=== PATIENT | female | born 1935 | race Caucasian/White ===

== ENCOUNTER → 2018-09-09 | Outpatient (CLI) | payer MEDICARE, OTHER ==
--- NOTE | 2018-09-09 15:55 | XR ---
EXAMINATION TYPE: XR chest 2V DATE OF EXAM: 09/09/2018 COMPARISON: Prior chest x-ray 08/24/2014 HISTORY: Screening for tuberculosis TECHNIQUE: Frontal and lateral views of the chest are obtained. FINDINGS: Patient is rotated. Aorta is dense as on prior exam. Fibrotic changes are again noted at th e lung bases. There are coronary artery calcifications present. There is no focal air space opacity, pleural effusion, or pneumothorax seen. The cardiac silhouette size is within normal limits. The o sseous structures are intact. IMPRESSION: Interstitial lung disease, stable exam.
== END | disposition home or self-care (01) ==
LOC: RADXRMAIN 14:53
PROVIDERS: ATTEND Family Medicine
DX: Z11.1 Encounter for screening for respiratory tuberculosis (principal); J84.9 Interstitial pulmonary disease, unspecified; Z02.2 Encounter for examination for admission to residential institution
CPT/HCPCS: 71046

== ENCOUNTER 2019-02-08 18:57 | Inpatient (IN) | payer MEDICARE, OTHER ==
[2019-02-08] MEDS ORDERED: MORPHINE SULFATE 4 MG/ML SYRINGE IVP STA (19:13)
--- NOTE | 2019-02-08 20:01 | CT ---
EXAMINATION TYPE: CT brain bertin macdonald DATE OF EXAM: 02/08/2019 COMPARISON: CT brain 09/07/2014 HISTORY: Fall. CT DLP: 1243.6 mGycm Automated exposure control for dose reduction was used. There is diffuse cerebral cortical atrophy. There is no mass effect nor midline shift. There is no si gn of intracranial hemorrhage. There is enlargement of the ventricles. Calvarium is intact. There is some straightening of the cervical spine. The disc space narrowing at C3-4 and C5-6. Posteri or elements are intact. Facet joints are intact. Skull base is intact. IMPRESSION: Cerebral atrophy. No acute intracranial abnormality. No change. Spondylotic changes in the cervical spine. No fracture seen.
--- NOTE | 2019-02-08 20:04 | XR ---
EXAMINATION TYPE: XR chest 1V DATE OF EXAM: 02/08/2019 COMPARISON: 09/09/2018 HISTORY: Chest pain TECHNIQUE: Single view FINDINGS: There is general coarsening interstitial density in the lungs. There is no heart failure. H eart size is normal. There is no pleural effusion or pneumothorax. There is moderate arthritic change in the right shoulder joint. IMPRESSION: Pulmonary interstitial fibrosis. No acute lung disease. No change.
--- NOTE | 2019-02-08 20:06 | XR ---
EXAMINATION TYPE: XR Hip LT and AP Pelvis DATE OF EXAM: 02/08/2019 COMPARISON: NONE HISTORY: Hip pain after fall TECHNIQUE: 3 views FINDINGS: There is an acute subcapital fracture left femur. There is no dislocation. Pelvic ring is i ntact. Sacroiliac joints are intact. IMPRESSION: Acute subcapital fracture left femur.
--- NOTE | 2019-02-08 20:07 | XR ---
EXAMINATION TYPE: XR femur LT DATE OF EXAM: 02/08/2019 COMPARISON: NONE HISTORY: Fall. Pain. TECHNIQUE: 6 views FINDINGS: There is a left knee prosthesis. Components appear in anatomic position. There is osteopeni a. There is vascular calcification. There is an acute slightly impacted subcapital fracture left femur. There is no dislocation. IMPRESSION: Acute subcapital fracture left femur.
[2019-02-08 20:51] LABS: Basophils % (A) 0 %; Eosinophils % (A) 0 %; HCT 39.4 % (34.0-46.0); HGB 12.9 gm/dL (11.4-16.0); Lymphocytes # (A) 0.8 k/uL (1.0-4.8); Lymphocytes % (A) 5 %; MCH 32.3 pg (25.0-35.0); MCHC 32.7 g/dL (31.0-37.0); MCV 98.8 fL (80.0-100.0); Monocytes # (A) 0.4 k/uL (0-1.0); Monocytes % (A) 3 %; Neutrophils # (A) 13.8 k/uL (1.3-7.7); Neutrophils % (A) 92 %; Platelet Count 179 k/uL (150-450); RBC 3.99 m/uL (3.80-5.40)
[2019-02-08 21:01] LABS: ALT 11 U/L (4-34); AST 23 U/L (14-36); African American GFR (CKD) >90 (>60 ml/min/1.73 sqM); Albumin 4.3 g/dL (3.5-5.0); Alkaline Phosphatase 79 U/L (38-126); Anion Gap 8 mmol/L; Blood Urea Nitrogen 18 mg/dL (7-17); Calcium 9.7 mg/dL (8.4-10.2); Carbon Dioxide 26 mmol/L (22-30); Chloride 107 mmol/L (98-107); Glucose 112 mg/dL (74-99); Non-African American GFR(CKD) 78 (>60 ml/min/1.73 sqM); Potassium 3.9 mmol/L (3.5-5.1); Sodium 141 mmol/L (137-145); Total Bilirubin 1.1 mg/dL (0.2-1.3); Total Protein 7.8 g/dL (6.3-8.2)
[2019-02-08] MEDS ORDERED: NALOXONE 0.4 MG/ML 1 ML VIAL IV PRN (21:37)
[2019-02-08] MEDS ORDERED: ONDANSETRON 4 MG/2 ML VIAL IVP PRN (21:37)
--- NOTE | 2019-02-08 21:37 | ED ---
General Adult HPI - General Source: patient, RN notes reviewed Mode of arrival: EMS Limitations: altered mental status <Paul Arias P - Last Filed: 02/08/19 21:31> <Kelsey Bell P - Last Filed: 02/09/19 05:55> - General Chief complaint: Fall Stated complaint: FALL Time Seen by Provider: 02/08/19 19:06 - History of Present Illness Initial comments: 83-year-old female with a past medical history CAD, dementia presents to the emergency department chief complaint of left hip pain. Patient presents from [facility]. Patient had a trip and fall earlier today. This was witnessed. Patient fell and had a left hip and was unable to ambulate on the left hip so an ambulance was called. Patient was brought in a c-collar with possibility of hitting her head. Patient does not take blood thinners.Patient has no other complaints at this time including shortness of breath, chest pain, abdominal pain, nausea or vomiting, headache, or visual changes. (Paul Arias) - Related Data Home Medications Medication Instructions Recorded Confirmed Adp 50mg 1 tab PO TID 02/08/19 02/08/19 Cholecalciferol [Vitamin D3 (25 5,000 unit PO DAILY 02/08/19 02/08/19 Mcg = 1000 Iu)] Cyanocobalamin (Vitamin B-12) 5,000 mcg PO DAILY 02/08/19 02/08/19 [Vitamin B-12] Digestzyme 1 cap PO TID-W/MEALS 02/08/19 02/08/19 Zohra C Cranberry 2000mg 1 tab PO BID 02/08/19 02/08/19 Kera Probiotic 1 cap PO DAILY 02/08/19 02/08/19 Homocystrol 17mg 1 cap PO BID 02/08/19 02/08/19 Lithate 5mg 1 tab PO BID 02/08/19 02/08/19 [place] Orotate 10mg 1 cap PO MOWEFR 02/08/19 02/08/19 Mct Oil 5 ml PO DAILY 02/08/19 02/08/19 Phyto Multivitamin 1 tab PO BID 02/08/19 02/08/19 Polyethylene Glycol 3350 [Miralax] 17 gm PO DAILY PRN 02/08/19 02/08/19 Thyroid Support 1 tab PO DAILY 02/08/19 02/08/19 Turmeric (Unknown Dose) 2 cap PO BID 02/08/19 02/08/19 Allergies Allergy/AdvReac Type Severity Reaction Status Date / Time No Known Allergies Allergy Verified 02/08/19 22:27 Review of Systems ROS Other: All systems not noted in ROS Statement are negative. <Paul Arias P - Last Filed: 02/08/19 21:31> ROS Other: All systems not noted in ROS Statement are negative. <Kelsey Bell P - Last Filed: 02/09/19 05:55> ROS Statement: Those systems with pertinent positive or pertinent negative responses have been documented in the HPI. Past Medical History Past Medical History: Coronary Artery Disease (CAD), Dementia, Deep Vein Thrombosis (DVT), Osteoarthritis (OA) Additional Past Medical History / Comment(s): used to take cholesterol and thyroid meds but not for lont time, uti, arrythmia History of Any Multi-Drug Resistant Organisms: None Reported Past Surgical History: Adenoidectomy, Appendectomy, Cholecystectomy, Heart Catheterization, Heart Catheterization With Stent, Hysterectomy, Tonsillectomy Additional Past Surgical History / Comment(s): marry knee replacements, marry breast bx neg Past Anesthesia/Blood Transfusion Reactions: Previous Problems w/ Anesthesia Additional Past Anesthesia/Blood Transfusion Reaction / Comment(s): fater knee sx seemed to have loss some memory Date of Last Stent Placement:: unk Past Psychological History: No Psychological Hx Reported Smoking Status: Never smoker Past Alcohol Use History: None Reported Past Drug Use History: None Reported - Past Family History Father Family Medical History: Coronary Artery Disease (CAD) Additional Family Medical History / Comment(s): at age 72 3 days after cabg Mother Family Medical History: Cancer Additional Family Medical History / Comment(s): at age 36 <Paul Arias P - Last Filed: 02/08/19 21:31> General Exam Limitations: altered mental status General appearance: alert, in no apparent distress Head exam: Present: atraumatic, normocephalic, normal inspection Eye exam: Present: normal appearance, PERRL, EOMI. Absent: scleral icterus, conjunctival injection ENT exam: Present: normal exam, mucous membranes moist Neck exam: Present: normal inspection. Absent: tenderness, meningismus, lymphadenopathy Respiratory exam: Present: normal lung sounds bilaterally. Absent: respiratory distress, wheezes, rales, rhonchi, stridor Cardiovascular Exam: Present: regular rate, normal rhythm, normal heart sounds. Absent: systolic murmur, diastolic murmur, rubs, gallop, clicks Extremities exam: Present: normal capillary refill (Capillary refill less than 2 seconds, DP pulse is strong on Doppler). Absent: normal inspection, full ROM (Patient has pain with passive range of motion of the left hip), tenderness, pedal edema, joint swelling, calf tenderness <Paul Arias - Last Filed: 02/08/19 21:31> Course Vital Signs 02/08/19 02/08/19 02/08/19 19:03 20:59 22:21 Temperature 97.9 F Pulse Rate 63 81 89 Respiratory 18 18 18 Rate Blood Pressure 158/64 173/80 164/97 O2 Sat by Pulse 98 93 L 93 L Oximetry 02/09/19 02/09/19 00:00 04:48 Temperature 97.8 F 98.4 F Pulse Rate 59 L 82 Respiratory 18 18 Rate Blood Pressure 158/79 127/77 O2 Sat by Pulse 93 L 90 L Oximetry EKG Findings - EKG Comments: EKG Findings:: Sinus rhythm, ventricular rate 86, CT interval 256, QTc 469 <Paul Arias - Last Filed: 02/08/19 21:31> Medical Decision Making - Lab Data Result diagrams: 02/08/19 20:35 02/08/19 20:35 <Paul Arias P - Last Filed: 02/08/19 21:31> - Lab Data Result diagrams: 02/08/19 20:35 02/08/19 20:35 <Kelsey Bell P - Last Filed: 02/09/19 05:55> - Medical Decision Making Vitals are stable. CT brain and C-spine showed no acute abnormality. Patient refused to keep on c-collar regardless. X-ray of the left hip shows an acute subcapital left femur fracture. Therefore lab work was obtained. CBC shows mild leukocytosis. CMP unremarkable. Chest x-ray shows pulmonary interstitial fibrosis without acute lung disease. This case was discussed with Dr. Bell. Patient will be admitted to [facility]. OA on consult (Paul Arias) I personally saw and Evaluated the patient, labs and imaging were reviewed, I agree with plan for admission for evaluation by orthopedic surgery (Kelsey Bell) - Lab Data Lab Results 02/08/19 02/08/19 Range/Units 20:35 20:35 WBC 15.0 H (3.8-10.6) k/uL RBC 3.99 (3.80-5.40) m/uL Hgb 12.9 (11.4-16.0) gm/dL Hct 39.4 (34.0-46.0) % MCV 98.8 (80.0-100.0) fL MCH 32.3 (25.0-35.0) pg MCHC 32.7 (31.0-37.0) g/dL RDW 13.0 (11.5-15.5) % Plt Count 179 (150-450) k/uL Neutrophils % 92 % Lymphocytes % 5 % Monocytes % 3 % Eosinophils % 0 % Basophils % 0 % Neutrophils # 13.8 H (1.3-7.7) k/uL Lymphocytes # 0.8 L (1.0-4.8) k/uL Monocytes # 0.4 (0-1.0) k/uL Eosinophils # 0.0 (0-0.7) k/uL Basophils # 0.0 (0-0.2) k/uL Sodium 141 (137-145) mmol/L Potassium 3.9 (3.5-5.1) mmol/L Chloride 107 (98-107) mmol/L Carbon Dioxide 26 (22-30) mmol/L Anion Gap 8 mmol/L BUN 18 H (7-17) mg/dL Creatinine 0.71 (0.52-1.04) mg/dL Est GFR (CKD-EPI)AfAm >90 (>60 ml/min/1.73 sqM) Est GFR (CKD-EPI)NonAf 78 (>60 ml/min/1.73 sqM) Glucose 112 H (74-99) mg/dL Calcium 9.7 (8.4-10.2) mg/dL Total Bilirubin 1.1 (0.2-1.3) mg/dL AST 23 (14-36) U/L ALT 11 (4-34) U/L Alkaline Phosphatase 79 (38-126) U/L Total Protein 7.8 (6.3-8.2) g/dL Albumin 4.3 (3.5-5.0) g/dL Disposition Is patient prescribed a controlled substance at d/c from ED?: No Time of Disposition: 21:37 <Paul Arias P - Last Filed: 02/08/19 21:31> <Kelsey Bell P - Last Filed: 02/09/19 05:55> Clinical Impression: Hip fracture Disposition: ADMITTED IP TO THIS HOSP Condition: Good
[2019-02-09] MEDS: SODIUM CHLORIDE 0.9% 1,000 ML IV SCH ×2 (04:36→12:28)
[2019-02-09] MEDS: HYDROmorphone 0.5 MG/0.5 ML SYRINGE IVP PRN ×3 (04:52→20:45)
[2019-02-09] MEDS ORDERED: POLYETHYLENE GLYCOL 3350 17 GM POWD.PACK PO PRN (08:32)
[2019-02-09] MEDS ORDERED: THYROID SUPPORT PO SCH (09:00)
--- NOTE | 2019-02-09 09:41 | P.HPIM ---
History of Present Illness This is a pleasant 83 years old female with past medical history of dementia, coronary artery disease with stent placement, deep venous thrombosis, osteoarthritis. Patient lying in bed not in distress. Patient is poor historian and could not provide information. She does not know where she is at, and she does not know why should not hospital however she denies chest pain, she denies pain in her hip area. As per DrKelechi at bedside and she can recognize the daughter, she came last night because she fell.Patient presents from adult foster care after she fell and presents with left hip pain and inability to ambulate with possible head trauma. She is not on Coumadin as per documents. Horta catheter was placed in the emergency room Vitals stable. Patient has mild leukocytosis of 15 K. BMP is unremarkable. Liver enzymes not elevated. Chest x-ray: No acute process. EKG showing 86 bpm with sinus rhythm and no significant ST-T changes. Pelvic x-ray showing acute subcapital left femoral fracture Review of Systems CONSTITUTIONAL: No fever, no malaise, no fatigue. HEENT: No recent visual problems or hearing problems. Denied any sore throat. CARDIOVASCULAR: No orthopnea, PND, no palpitations, no syncope. PULMONARY: No shortness of breath, no cough, no hemoptysis. GASTROINTESTINAL: No diarrhea, no nausea, no vomiting, no abdominal pain. Normoactive bowel sounds. NEUROLOGICAL: No headaches, no weakness, no numbness. HEMATOLOGICAL: Denies any bleeding or petechiae. GENITOURINARY: Denies any burning micturition, frequency, or urgency. MUSCULOSKELETAL/RHEUMATOLOGICAL: Denies any joint pain, swelling, or any muscle pain. ENDOCRINE: Denies any polyuria or polydipsia. Past Medical History Past Medical History: Coronary Artery Disease (CAD), Dementia, Deep Vein Thrombosis (DVT), Osteoarthritis (OA) Additional Past Medical History / Comment(s): used to take cholesterol and thyroid meds but not for lont time, uti, arrythmia History of Any Multi-Drug Resistant Organisms: None Reported Past Surgical History: Adenoidectomy, Appendectomy, Cholecystectomy, Heart Catheterization, Heart Catheterization With Stent, Hysterectomy, Tonsillectomy Additional Past Surgical History / Comment(s): marry knee replacements, marry breast bx neg Past Anesthesia/Blood Transfusion Reactions: Previous Problems w/ Anesthesia Additional Past Anesthesia/Blood Transfusion Reaction / Comment(s): fater knee sx seemed to have loss some memory Date of Last Stent Placement:: unk Past Psychological History: No Psychological Hx Reported Smoking Status: Never smoker Past Alcohol Use History: None Reported Past Drug Use History: None Reported - Past Family History Father Family Medical History: Coronary Artery Disease (CAD) Additional Family Medical History / Comment(s): at age 72 3 days after cabg Mother Family Medical History: Cancer Additional Family Medical History / Comment(s): at age 36 Medications and Allergies Home Medications Medication Instructions Recorded Confirmed Type Adp 50mg 1 tab PO TID 02/08/19 02/08/19 History Cholecalciferol [Vitamin D3 (25 5,000 unit PO DAILY 02/08/19 02/08/19 History Mcg = 1000 Iu)] Cyanocobalamin (Vitamin B-12) 5,000 mcg PO DAILY 02/08/19 02/08/19 History [Vitamin B-12] Digestzyme 1 cap PO TID-W/MEALS 02/08/19 02/08/19 History Zohra C Cranberry 2000mg 1 tab PO BID 02/08/19 02/08/19 History Kera Probiotic 1 cap PO DAILY 02/08/19 02/08/19 History Homocystrol 17mg 1 cap PO BID 02/08/19 02/08/19 History Lithate 5mg 1 tab PO BID 02/08/19 02/08/19 History [place] Orotate 10mg 1 cap PO MOWEFR 02/08/19 02/08/19 History Mct Oil 5 ml PO DAILY 02/08/19 02/08/19 History Phyto Multivitamin 1 tab PO BID 02/08/19 02/08/19 History Polyethylene Glycol 3350 [Miralax] 17 gm PO DAILY PRN 02/08/19 02/08/19 History Thyroid Support 1 tab PO DAILY 02/08/19 02/08/19 History Turmeric (Unknown Dose) 2 cap PO BID 02/08/19 02/08/19 History Allergies Allergy/AdvReac Type Severity Reaction Status Date / Time No Known Allergies Allergy Verified 02/08/19 22:27 Physical Exam Vitals: Vital Signs Temp Pulse Resp BP Pulse Ox 02/09/19 04:48 98.4 F 82 18 127/77 90 L 02/09/19 00:00 97.8 F 59 L 18 158/79 93 L 02/08/19 22:21 89 18 164/97 93 L 02/08/19 20:59 81 18 173/80 93 L 02/08/19 19:03 97.9 F 63 18 158/64 98 Intake and Output 02/08/19 02/09/19 02/09/19 22:59 06:59 14:59 Output Total 400 Balance -400 Output: Urine 400 Other: Weight 68.039 kg GENERAL: The patient is alert and oriented x3, not in any acute distress. Well developed, well nourished. HEENT: Pupils are round and equally reacting to light. EOMI. No scleral icterus. No conjunctival pallor. Normocephalic, atraumatic. No pharyngeal erythema. No thyromegaly. CARDIOVASCULAR: S1 and S2 present. No murmurs, rubs, or gallops. PULMONARY: Chest is clear to auscultation, no wheezing or crackles. ABDOMEN: Soft, nontender, nondistended, normoactive bowel sounds. No palpable organomegaly. MUSCULOSKELETAL: No joint swelling or deformity. EXTREMITIES: No cyanosis, clubbing, or pedal edema. NEUROLOGICAL: Gross neurological examination did not reveal any focal deficits. SKIN: No rashes. No petechiae Results CBC & Chem 7: 02/08/19 20:35 02/08/19 20:35 Labs: Abnormal Lab Results - Last 24 Hours (Table) 02/08/19 02/08/19 Range/Units 20:35 20:35 WBC 15.0 H (3.8-10.6) k/uL Neutrophils # 13.8 H (1.3-7.7) k/uL Lymphocytes # 0.8 L (1.0-4.8) k/uL BUN 18 H (7-17) mg/dL Glucose 112 H (74-99) mg/dL Assessment and Plan Assessment: Mechanical fall Left hip pain with acute subcapital left femoral fracture Head trauma Dementia Coronary artery disease with stent placement History of deep venous thrombosis not on anticoagulation Osteoarthritis Plan: This is a pleasant 83 years old female who presents with fall and left hip fracture. Continue with gentle hydration, pain management. Consult orthopedic. Continue with the neuro checks. Check urine analysis. Labs and medication were reviewed.. Continue same treatment. Continue with symptomatic treatment. Resume home medication. Monitor lytes and vitals. DVT and GI prophylaxis. Further recommendations of the clinical course of the patient DVT prophylaxis: Subcutaneous heparin GI Prophylaxis: Pepcid Prognosis is guarded
[2019-02-09] MEDS: HEPARIN SODIUM,PORCINE 5,000 UNIT/ML 1 ML VIAL SQ SCH ×2 (10:02→22:38)
[2019-02-09] MEDS: CHOLECALCIFEROL 1,000 UNIT TAB PO SCH (10:02)
[2019-02-09 10:47] LABS: Appearance,Urine Cloudy (Clear); Bacteria,Urine Rare /hpf; Bilirubin,Urine Negative (Negative); Blood,Urine Trace (Negative); Color,Urine Yellow; Glucose,Urine (UA) Negative (Negative); Ketones,Urine 1+ (Negative); Leukocyte Esterase,Urine Small (Negative); Mucus,Urine Rare /hpf; Nitrite,Urine Negative (Negative); Protein,Urine Trace (Negative); RBC,Urine 2 /hpf (0-5); Specific Gravity,Urine 1.022 (1.001-1.035); Squamous Epithelial Cell,Urine <1 /hpf (0-4); Urobilinogen,Urine >12.0 mg/dL (<2.0); WBC,Urine 8 /hpf (0-5)
[2019-02-09] MEDS: CYANOCOBALAMIN 500 MCG TAB PO SCH (12:27)
[2019-02-09] MEDS: METOPROLOL TARTRATE 12.5 MG TAB PO SCH ×2 (12:27→22:37)
[2019-02-09] MEDS: LISINOPRIL 5 MG TAB PO SCH (12:28)
[2019-02-09] MEDS: FAMOTIDINE 20 MG/2 ML VIAL IV SCH ×2 (12:28→22:38)
[2019-02-09] MEDS ORDERED: LORazepam 2 MG/ML INJ IV ONE (22:30)
[2019-02-09] MEDS: ATORVASTATIN 20 MG TAB PO SCH (22:38)
[2019-02-10] MEDS: SODIUM CHLORIDE 0.9% 1,000 ML IV SCH (01:23)
[2019-02-10] MEDS: HEPARIN SODIUM,PORCINE 5,000 UNIT/ML 1 ML VIAL SQ SCH ×2 (06:45→21:00)
[2019-02-10] MEDS ORDERED: FUROSEMIDE 10 MG/ML 4 ML VIAL IV STA (07:39)
[2019-02-10] MEDS ORDERED: Magnesium Replacement Protocol 1 EACH MISC MISCELLANE PRN (07:39)
[2019-02-10] MEDS ORDERED: Potassium Replacement Protocol 1 EACH MISC MISCELLANE PRN (07:39)
--- NOTE | 2019-02-10 07:48 | P.CNOR ---
History of Present Illness - [facility] Consult date: 02/10/19 Consult reason: fracture (right hip) History of present illness: The patient is an 83-year-old female who was brought to the emergency department after a mechanical fall. Patient has dementia and history was provided by her son. Per his report, she was reaching down to pick something up off the floor and fell over, injuring her left hip. X-rays emergency department revealed a displaced left femoral neck fracture. Patient lives in adult foster nursing home with family close by. She normally does not use a walker to ambulate. She has had prior bilateral TKAs by Dr. Bal Tsang. Past medical history is significant for cardiovascular disease and prior stent placement. Past Medical History Past Medical History: Coronary Artery Disease (CAD), Dementia, Deep Vein Thrombosis (DVT), Osteoarthritis (OA) Additional Past Medical History / Comment(s): ADVANCED DEMENTIA; UTI; arrythmia History of Any Multi-Drug Resistant Organisms: None Reported Past Surgical History: Adenoidectomy, Appendectomy, Cholecystectomy, Heart Catheterization, Heart Catheterization With Stent, Hysterectomy, Tonsillectomy Additional Past Surgical History / Comment(s): marry knee replacements, marry breast bx neg Past Anesthesia/Blood Transfusion Reactions: Previous Problems w/ Anesthesia Additional Past Anesthesia/Blood Transfusion Reaction / Comm: fater knee sx seemed to have loss some memory Date of Last Stent Placement:: unknown Past Psychological History: No Psychological Hx Reported Smoking Status: Never smoker Past Alcohol Use History: None Reported Past Drug Use History: None Reported - Past Family History Father Family Medical History: Coronary Artery Disease (CAD) Additional Family Medical History / Comment(s): at age 72 3 days after cabg Mother Family Medical History: Cancer Additional Family Medical History / Comment(s): at age 36 Medications and Allergies Home Medications Medication Instructions Recorded Confirmed Type Adp 50mg 1 tab PO TID 02/08/19 02/08/19 History Cholecalciferol [Vitamin D3 (25 5,000 unit PO DAILY 02/08/19 02/08/19 History Mcg = 1000 Iu)] Cyanocobalamin (Vitamin B-12) 5,000 mcg PO DAILY 02/08/19 02/08/19 History [Vitamin B-12] Digestzyme 1 cap PO TID-W/MEALS 02/08/19 02/08/19 History Zohra C Cranberry 2000mg 1 tab PO BID 02/08/19 02/08/19 History Kera Probiotic 1 cap PO DAILY 02/08/19 02/08/19 History Homocystrol 17mg 1 cap PO BID 02/08/19 02/08/19 History Lithate 5mg 1 tab PO BID 02/08/19 02/08/19 History [place] Orotate 10mg 1 cap PO MOWEFR 02/08/19 02/08/19 History Mct Oil 5 ml PO DAILY 02/08/19 02/08/19 History Phyto Multivitamin 1 tab PO BID 02/08/19 02/08/19 History Polyethylene Glycol 3350 [Miralax] 17 gm PO DAILY PRN 02/08/19 02/08/19 History Thyroid Support 1 tab PO DAILY 02/08/19 02/08/19 History Turmeric (Unknown Dose) 2 cap PO BID 02/08/19 02/08/19 History Allergies Allergy/AdvReac Type Severity Reaction Status Date / Time No Known Allergies Allergy Verified 02/08/19 22:27 Physical Examination Musculoskeletal: Tenderness to palpation over the greater trochanter. No visible ulcerations, abrasions or ecchymosis around the hip. Pain with logroll. The pelvis is stable to AP and lateral compression. The patient is somnolent and unable to purchase patient in neuromuscular exam. The calf is soft and nontender. The foot is warm dry and well-perfused. Secondary survey reveals no visible or palpable deformity in the contralateral leg or bilateral upper extremities. Results X-rays of the pelvis and left hip were reviewed and interpreted from an orthopedic standpoint. These demonstrate a displaced transcervical (subcapital) left femoral neck fracture with mild valgus impaction. Excellent alignment on the lateral view. No other fractures or acute osseous pathology is appreciated. - Labs Labs: Abnormal Lab Results - Last 24 Hours (Table) 02/09/19 Range/Units 10:00 Urine Appearance Cloudy H (Clear) Urine Protein Trace H (Negative) Urine Ketones 1+ H (Negative) Urine Blood Trace H (Negative) Ur Leukocyte Esterase Small H (Negative) Urine WBC 8 H (0-5) /hpf Urine Bacteria Rare H (None) /hpf Urine Mucus Rare H (None) /hpf H & H 02/08/19 Range/Units 20:35 Hgb 12.9 (11.4-16.0) gm/dL Hct 39.4 (34.0-46.0) % Result Diagrams: 02/08/19 20:35 02/08/19 20:35 Assessment and Plan Assessment: 1. Displaced transcervical subcapital left femoral neck fracture 2. Dementia Plan: I discussed the diagnosis and radiographic findings with the patient's son. We reviewed the pertinent anatomy and pathophysiology of the injury. We discussed treatment options and I explained the rationale behind surgical intervention. I recommended operative treatment in the form of a hemiarthroplasty. We discussed the surgical plan and expected postoperative course. Risks and benefits were reviewed including (but not limited to) the risks of infection, bleeding, blood clots, dislocation and possible need for additional surgery. He was concerned about her inability to adhere to postoperative activity restrictions. I explained that her dementia does place her at higher risk for dislocation and we will put measures in place to try to protect her in the early healing phase. Questions were invited and answered. Her son expressed understanding and wishes to proceed with surgery. The patient will be kept on bedrest. Continue PRN pain management. NPO. We will plan for surgery today. Thank you for allowing me to participate in the care of this patient. Blayne Bunn D.O. [facility]
--- NOTE | 2019-02-10 08:14 | P.PN ---
Subjective This is a pleasant 83 years old female with past medical history of dementia, coronary artery disease with stent placement, deep venous thrombosis, osteoarthritis. Patient lying in bed not in distress. Patient is poor historian and could not provide information. She does not know where she is at, and she does not know why should not hospital however she denies chest pain, she denies pain in her hip area. As per DrKelechi at bedside and she can recognize the daughter, she came last night because she fell.Patient presents from adult foster care after she fell and presents with left hip pain and inability to ambulate with possible head trauma. She is not on Coumadin as per documents. Horta catheter was placed in the emergency room Vitals stable. Patient has mild leukocytosis of 15 K. BMP is unremarkable. Liver enzymes not elevated. Chest x-ray: No acute process. EKG showing 86 bpm with sinus rhythm and no significant ST-T changes. Pelvic x-ray showing acute subcapital left femoral fracture 02/10/2019 Patient still confused which is looking like her baseline, patient is saturating 90% on 6 L oxygen and she was little dyspneic. Chest x-ray from yesterday showing interstitial fibrosis. Patient was on normal saline at 75 mL/h. Stop normal saline and given 1 dose of Lasix and switch her to D5 half-normal saline at 50 mL. Also patient has UTI which may contributing to her worsening confusion and agitation and breathing difficulty. Patient is started on Rocephin. Orthopedic input is appreciated. Patient will be going for surgery today. For her displaced transcervical subcapital left femoral neck fracture, although the patient is reasonable to go for surgery today however she has some risk given her age and comorbidities. Patient nothing by mouth for surgery. Labs are still pending. Patient is afebrile and vitals are stable except for patient is a slightly hypoxic. Review of system: Not applicable due to patient confusion Active Medications Generic Name Dose Route Start Last Admin Trade Name Freq PRN Reason Stop Dose Admin Atorvastatin Calcium 20 mg 02/09/19 21:00 02/09/19 22:38 Lipitor PO 20 mg HS THAD Administration Cholecalciferol 5,000 unit 02/09/19 09:00 02/09/19 10:02 Vitamin D3 (25 Mcg = 1000 Iu) PO 5,000 unit DAILY THAD Administration Cyanocobalamin 500 mcg 02/09/19 09:00 02/09/19 12:27 Vitamin B-12 PO 500 mcg DAILY THAD Administration Famotidine 20 mg 02/09/19 09:00 02/09/19 22:38 Pepcid IV 20 mg Q12HR THAD Administration Heparin Sodium (Porcine) 5,000 unit 02/09/19 09:00 02/10/19 06:45 Heparin SQ Not Given Q12HR THAD Hydromorphone HCl 0.5 mg 02/08/19 21:37 02/09/19 20:45 Dilaudid IVP 0.5 mg Q3HR PRN Administration Moderate Pain Ceftriaxone Sodium 1 gm/ 50 mls @ 100 mls/hr 02/09/19 22:00 02/09/19 23:00 Sodium Chloride IVPB 100 mls/hr Q24H THAD Administration Dextrose/Sodium Chloride 1,000 mls @ 50 mls/hr 02/10/19 07:45 Dextrose 5%-1/2ns Iv Soln IV .Q20H HTAD Lisinopril 5 mg 02/09/19 09:00 02/09/19 12:28 Zestril PO 5 mg DAILY THAD Administration Metoprolol Tartrate 12.5 mg 02/09/19 09:00 02/09/19 22:37 Lopressor PO 12.5 mg BID THAD Administration Miscellaneous Information 1 each 02/10/19 07:39 Potassium Per Protocol MISCELLANE DAILY PRN Per Protocol Protocol Miscellaneous Information 1 each 02/10/19 07:39 Magnesium Per Protocol MISCELLANE DAILY PRN Per Protocol Protocol Naloxone HCl 0.2 mg 02/08/19 21:37 Narcan IV Q2M PRN Opioid Reversal Ondansetron HCl 4 mg 02/08/19 21:37 Zofran IVP Q8HR PRN Nausea And Vomiting Polyethylene Glycol 17 gm 02/09/19 08:32 Miralax PO DAILY PRN Constipation Objective - Vital Signs Vital signs: Vital Signs Temp 99.6 F 02/10/19 06:18 Pulse 88 02/10/19 06:18 Resp 20 02/10/19 06:18 BP 155/70 02/10/19 06:18 Pulse Ox 90 L 02/10/19 06:18 Intake & Output 02/09/19 02/10/19 02/10/19 18:59 06:59 18:59 Intake Total 540 100 Output Total 400 300 Balance 140 -200 Weight 68.039 kg Intake: Oral 540 100 Output: Urine 400 300 Other: Voiding Method Indwelling Catheter Indwelling Catheter - Exam -GENERAL: The patient is confused at baseline, not in any acute distress. Well developed, well nourished. HEENT: Pupils are round and equally reacting to light. EOMI. No scleral icterus. No conjunctival pallor. Normocephalic, atraumatic. No pharyngeal erythema. No thyromegaly. CARDIOVASCULAR: S1 and S2 present. No murmurs, rubs, or gallops. -PULMONARY: Chest is clear to auscultation, no wheezing. Bilateral basal crepitation -ABDOMEN: Soft, nontender, nondistended, normoactive bowel sounds. No palpable organomegaly. Horta catheter is in place MUSCULOSKELETAL: No joint swelling or deformity. EXTREMITIES: No cyanosis, clubbing, or pedal edema. NEUROLOGICAL: Gross neurological examination did not reveal any focal deficits. SKIN: No rashes. No petechiae - Labs CBC & Chem 7: 02/08/19 20:35 02/08/19 20:35 Labs: Abnormal Lab Results - Last 24 Hours (Table) 02/09/19 Range/Units 10:00 Urine Appearance Cloudy H (Clear) Urine Protein Trace H (Negative) Urine Ketones 1+ H (Negative) Urine Blood Trace H (Negative) Ur Leukocyte Esterase Small H (Negative) Urine WBC 8 H (0-5) /hpf Urine Bacteria Rare H (None) /hpf Urine Mucus Rare H (None) /hpf Assessment and Plan Assessment: Mechanical fall Left hip pain with acute subcapital left femoral fracture Urinary tract infection Head trauma Dementia, with possible elements of metabolic encephalopathy related to her urinary tract infection Coronary artery disease with stent placement History of deep venous thrombosis not on anticoagulation Osteoarthritis Plan: This is a pleasant 83 years old female who presents with fall and left hip fracture. Continue with gentle hydration and change his fluids to half-normal saline, pain management. Continue with ceftriaxone for UTI and follow-up urine culture. Patient might be going for surgery for her hip fracture today. We'll repeat CAT scan of the head as patient has history of present trauma and contusion, for a follow-up on the CAT scan done Labs and medication were reviewed.. Continue same treatment. Continue with symptomatic treatment. Resume home medication. Monitor lytes and vitals. DVT and GI prophylaxis. Further recommendations of the clinical course of the patient DVT prophylaxis: Subcutaneous heparin GI Prophylaxis: Pepcid Prognosis is guarded
[2019-02-10] MEDS: CHOLECALCIFEROL 1,000 UNIT TAB PO SCH (08:18)
[2019-02-10] MEDS: METOPROLOL TARTRATE 12.5 MG TAB PO SCH ×2 (08:18→21:00)
[2019-02-10] MEDS: FAMOTIDINE 20 MG/2 ML VIAL IV SCH (08:18)
[2019-02-10] MEDS: CYANOCOBALAMIN 500 MCG TAB PO SCH (08:18)
[2019-02-10] MEDS: LISINOPRIL 5 MG TAB PO SCH (08:18)
[2019-02-10] MEDS: DEXTROSE 5%-0.45% NACL 1,000 ML IV SCH (08:19)
[2019-02-10] MEDS: HYDROmorphone 0.5 MG/0.5 ML SYRINGE IVP PRN (08:31)
--- NOTE | 2019-02-10 10:03 | CT ---
EXAMINATION TYPE: CT brain wo con DATE OF EXAM: 02/10/2019 HISTORY: AMS. Confusion. CT DLP: 2682.9 mGycm. Automated Exposure Control for Dose Reduction was Utilized. TECHNIQUE: CT scan of the head is performed without contrast. COMPARISON: CT Brain performed 2 days earlier. FINDINGS: Current study is suboptimal as it is degraded by patient motion, repeat imaging is perfor med. There is no acute intracranial hemorrhage or midline shift identified. There is diffuse ventricu lar and sulcal prominence redemonstrated. Ventricles are felt slightly greater dilatation than degree of sulcal effacement. No significant change from most recent CT There is low-attenuation in the katie ventricular white matter redemonstrated. Patchy soft tissue density bilateral external auditory canal s likely reflects cerumen. Calcification right lung is redemonstrated. Visualized sinuses are clear. IMPRESSION: No acute intracranial hemorrhage or midline shift. There is moderate diffuse cerebral a trophy and probable chronic small vessel ischemic change redemonstrated. Cannot exclude underlying n ormal pressure hydrocephalus. No significant change from most recent CT.
[2019-02-10 11:45] LABS: Calcium 8.5 mg/dL (8.4-10.2); Potassium 3.9 mmol/L (3.5-5.1)
[2019-02-10 12:01] LABS: Basophils % (A) 0 %; Eosinophils # (A) 0.1 k/uL (0-0.7); Eosinophils % (A) 1 %; HCT 35.7 % (34.0-46.0); HGB 11.5 gm/dL (11.4-16.0); Lymphocytes % (A) 9 %; MCH 32.2 pg (25.0-35.0); MCHC 32.3 g/dL (31.0-37.0); MCV 99.8 fL (80.0-100.0); Monocytes # (A) 0.6 k/uL (0-1.0); Monocytes % (A) 5 %; Neutrophils # (A) 9.4 k/uL (1.3-7.7); Neutrophils % (A) 84 %; Platelet Count 152 k/uL (150-450); RBC 3.58 m/uL (3.80-5.40); RDW 13.1 % (11.5-15.5); WBC 11.2 k/uL (3.8-10.6)
[2019-02-10] MEDS ORDERED: IV FLUID CONTINUATION 1,000 ML IV ONE (15:31)
[2019-02-10] MEDS: FAMOTIDINE 20 MG TAB PO SCH (20:59)
[2019-02-10] MEDS: ATORVASTATIN 20 MG TAB PO SCH (20:59)
[2019-02-11] MEDS: DEXTROSE 5%-0.45% NACL 1,000 ML IV SCH (04:27)
[2019-02-11] MEDS: HYDROmorphone 0.5 MG/0.5 ML SYRINGE IVP PRN ×2 (05:04→23:33)
[2019-02-11] MEDS: HEPARIN SODIUM,PORCINE 5,000 UNIT/ML 1 ML VIAL SQ SCH (08:48)
[2019-02-11] MEDS: FAMOTIDINE 20 MG TAB PO SCH ×2 (08:48→19:58)
[2019-02-11] MEDS: CYANOCOBALAMIN 500 MCG TAB PO SCH (08:48)
[2019-02-11] MEDS: CHOLECALCIFEROL 1,000 UNIT TAB PO SCH (08:48)
[2019-02-11] MEDS: LISINOPRIL 5 MG TAB PO SCH (08:51)
[2019-02-11] MEDS: METOPROLOL TARTRATE 12.5 MG TAB PO SCH ×2 (08:51→20:01)
--- NOTE | 2019-02-11 10:13 | P.PN ---
Subjective This is a pleasant 83 years old female with past medical history of dementia, coronary artery disease with stent placement, deep venous thrombosis, osteoarthritis. Patient lying in bed not in distress. Patient is poor historian and could not provide information. She does not know where she is at, and she does not know why should not hospital however she denies chest pain, she denies pain in her hip area. As per DrKelechi at bedside and she can recognize the daughter, she came last night because she fell.Patient presents from adult foster care after she fell and presents with left hip pain and inability to ambulate with possible head trauma. She is not on Coumadin as per documents. Horta catheter was placed in the emergency room Vitals stable. Patient has mild leukocytosis of 15 K. BMP is unremarkable. Liver enzymes not elevated. Chest x-ray: No acute process. EKG showing 86 bpm with sinus rhythm and no significant ST-T changes. Pelvic x-ray showing acute subcapital left femoral fracture 02/10/2019 Patient still confused which is looking like her baseline, patient is saturating 90% on 6 L oxygen and she was little dyspneic. Chest x-ray from yesterday showing interstitial fibrosis. Patient was on normal saline at 75 mL/h. Stop normal saline and given 1 dose of Lasix and switch her to D5 half-normal saline at 50 mL. Also patient has UTI which may contributing to her worsening confusion and agitation and breathing difficulty. Patient is started on Rocephin. Orthopedic input is appreciated. Patient will be going for surgery today. For her displaced transcervical subcapital left femoral neck fracture, although the patient is reasonable to go for surgery today however she has some risk given her age and comorbidities. Patient nothing by mouth for surgery. Labs are still pending. Patient is afebrile and vitals are stable except for patient is a slightly hypoxic. 02/11/2019 Patient did not go to surgery yesterday because the family wanted a different surgeon. Patient is going to be seen by Dr. Ellis. Patient is demented at baseline, the top of that she has another tract infection. There is a sitter at safety. Patient could not provide information. Horta catheter is in a Place. Patient currently on ceftriaxone and D5 half-normal saline at 50 mL/h. She has low-grade temperature of 99.8. WBC came back yesterday down to 11 point okay. Labs from today are pending Objective - Vital Signs Vital signs: Vital Signs Temp 99.8 F H 02/11/19 05:10 Pulse 103 H 02/11/19 05:10 Resp 20 02/11/19 05:10 BP 110/66 02/11/19 05:10 Pulse Ox 95 02/11/19 05:10 Intake & Output 02/10/19 02/11/19 02/11/19 18:59 06:59 18:59 Intake Total 300 Output Total 500 450 Balance -200 -450 Weight 68.039 kg Intake: IV 300 Oral 0 Output: Urine 500 450 Other: Voiding Method Indwelling Catheter Indwelling Catheter # Bowel Movements 0 - Exam -GENERAL: The patient is confused at baseline, not in any acute distress. Well developed, well nourished. HEENT: Pupils are round and equally reacting to light. EOMI. No scleral icterus. No conjunctival pallor. Normocephalic, atraumatic. No pharyngeal erythema. No thyromegaly. CARDIOVASCULAR: S1 and S2 present. No murmurs, rubs, or gallops. -PULMONARY: Chest is clear to auscultation, no wheezing. Bilateral basal crepitation -ABDOMEN: Soft, nontender, nondistended, normoactive bowel sounds. No palpable organomegaly. Horta catheter is in place MUSCULOSKELETAL: No joint swelling or deformity. EXTREMITIES: No cyanosis, clubbing, or pedal edema. NEUROLOGICAL: Gross neurological examination did not reveal any focal deficits. SKIN: No rashes. No petechiae - Labs CBC & Chem 7: 02/10/19 10:43 02/10/19 10:43 Labs: Abnormal Lab Results - Last 24 Hours (Table) 02/10/19 02/10/19 Range/Units 10:43 10:43 WBC 11.2 H (3.8-10.6) k/uL RBC 3.58 L (3.80-5.40) m/uL Neutrophils # 9.4 H (1.3-7.7) k/uL Glucose 137 H (74-99) mg/dL Microbiology - Last 24 Hours (Table) 02/10/19 06:19 Urine Culture - Preliminary Urine,Catheterized Assessment and Plan Assessment: Mechanical fall Left hip pain with acute subcapital left femoral fracture Urinary tract infection Head trauma Dementia, with possible elements of metabolic encephalopathy related to her urinary tract infection Coronary artery disease with stent placement History of deep venous thrombosis not on anticoagulation Osteoarthritis Plan: This is a pleasant 83 years old female who presents with fall and left hip fracture. Continue with gentle hydration and change his fluids to half-normal saline, pain management. Continue with ceftriaxone for UTI and follow-up urine culture. Patient might be going for surgery for her hip fracture today. We'll repeat CAT scan of the head as patient has history of present trauma and contusion, for a follow-up on the CAT scan done Labs and medication were reviewed.. Continue same treatment. Continue with symptomatic treatment. Resume home medication. Monitor lytes and vitals. DVT and GI prophylaxis. Further recommendations of the clinical course of the patient DVT prophylaxis: Subcutaneous heparin GI Prophylaxis: Pepcid Prognosis is guarded
[2019-02-11 10:19] LABS: Basophils % (A) 0 %; Eosinophils # (A) 0.1 k/uL (0-0.7); Eosinophils % (A) 1 %; HCT 32.9 % (34.0-46.0); HGB 11.1 gm/dL (11.4-16.0); Lymphocytes % (A) 11 %; MCH 33.7 pg (25.0-35.0); MCHC 33.7 g/dL (31.0-37.0); MCV 99.9 fL (80.0-100.0); Mean Platelet Volume 9.1; Monocytes # (A) 0.6 k/uL (0-1.0); Monocytes % (A) 6 %; Neutrophils # (A) 7.3 k/uL (1.3-7.7); Neutrophils % (A) 80 %; Platelet Count 147 k/uL (150-450); RBC 3.29 m/uL (3.80-5.40); WBC 9.1 k/uL (3.8-10.6)
[2019-02-11 10:30] LABS: Calcium 8.3 mg/dL (8.4-10.2); Potassium 3.7 mmol/L (3.5-5.1)
[2019-02-11] MEDS ORDERED: LACTATED RINGERS 1,000 ML IV ONE ×2 (13:13→15:46)
[2019-02-11] MEDS ORDERED: MAGNESIUM HYDROXIDE 2,400 MG/10 ML CUP PO PRN (14:15)
[2019-02-11] MEDS ORDERED: HYDROmorphone 0.5 MG/0.5 ML SYRINGE IVP PRN ×3 (14:15)
[2019-02-11] MEDS ORDERED: NALOXONE 0.4 MG/ML 1 ML VIAL IV PRN (14:15)
[2019-02-11] MEDS ORDERED: traMADol 50 MG TAB PO PRN ×2 (14:17)
[2019-02-11] MEDS ORDERED: ePHEDrine SULFATE/0.9% NACL/PF 50 MG/5 ML SYRINGE IV ONE (14:22)
[2019-02-11] MEDS ORDERED: MIDAZOLAM 2 MG/2 ML VIAL ONE (14:22)
[2019-02-11] MEDS ORDERED: diphenhydrAMINE 50 MG/ML 1 ML VIAL ONE (14:22)
[2019-02-11] MEDS ORDERED: fentaNYL (PF) 50 MCG/ML 2 ML AMP ONE (14:22)
[2019-02-11] MEDS ORDERED: PHENYLEPHRINE-0.9% NACL SYG 1 MG/10 ML SYRINGE ONE (14:22)
[2019-02-11] MEDS ORDERED: KETAMINE 10 MG/ML 20 ML VIAL ONE (14:22)
[2019-02-11] MEDS ORDERED: ceFAZolin 3,000 MG in SODIUM CHLORIDE 0.9% IRRIGATIO 3,000 ML IRRIGATION ONE (14:25)
[2019-02-11] MEDS ORDERED: SODIUM CHLORIDE 0.9% 100 ML with ceFAZolin 2,000 MG IV ONE ×2 (14:46)
--- NOTE | 2019-02-11 15:35 | P.OP ---
Date of Procedure: 02/11/19 Preoperative Diagnosis: Subcapital fracture left hip Postoperative Diagnosis: Subcapital fracture left hip Procedure(s) Performed: Left hip hemiarthroplasty Implants: Garcia and nephew Polarstem size 2 standard Garcia & Nephew tandem unipolar, 49 mm Garcia & Nephew tandem unipolar 12/14 taper sleeve, +0 mm All components were press-fit. Anesthesia: spinal Surgeon: Bal Tsagn Bisque Ware Dipper #1: Valarie Whitney Estimated Blood Loss (ml): 100 Pathology: other (Femoral head) Condition: stable Disposition: PACU Indications for Procedure: This is a 83-year-old female that presented to the hospital with a subcapital fracture of her left hip. She was originally could have operative treatment by my associate Dr. Ray, but due to delays in the surgery I agreed to take over the case. Informed consent was obtained from the family. Operative Findings: The operative findings are consistent with a subcapital fracture of the left hip age indeterminate Description of Procedure: Patient was seen and evaluated in the preoperative area, consent was reviewed and the operative site was marked with a skin marker. Patient was then brought to the operating room and given 2 g of Ancef intravenously. A spinal anesthetic was administered by the anesthesia department. Patient was then placed in a lateral decubitus position and held with a Montral hip positioner. The bony prominences were well-padded and an axillary roll was placed. The hip was then prepped and draped in the usual sterile fashion. A universal timeout was then performed which confirmed the patient's name, surgical site, ALLERGIES, and procedure. A standard anterolateral approach the hip was performed. Skin and subcutaneous tissues were sharply incised with an incision centered over the tip of the greater trochanter. The incision was carefully dissected down to the fascia. The fascia was then split in line with skin incision and a Charnley retractor was gently placed. The abductors were then identified, and the anterior one third of the abductors were released off the trochanter and one large sleeve. The fracture hematoma was evacuated and the proximal femur was exposed by ex ternally rotating the femur. The fracture site was readily visualized. Next, using an osteotomy guide, the proximal femur was osteotomized at the appropriate level of the above the lesser trochanter. This bone was then removed. Attention was then turned to the femoral head. Using a corkscrew, the femoral head was removed from the acetabulum without incident. The acetabulum was inspected, and found to have no significant arthrosis. Femoral head was then measured. Attention was then redirected to the femur. Proximal femur was re-exposed and a box osteotome was used to lateralize the proximal femur. A ranch hand livestock was then used to locate the femoral canal. Sequential broaching was then performed to the appropriate size. The calcar was then planed and trial head and neck were placed. The hip was then gently reduced. Leg lengths were checked and found to be equal. Hip was then taken through a full range of motion was stable throughout. The hip was then gently dislocated with the aid of a bone hook. The trial head and neck were then removed. The femoral broach was then inspected and found to have a secure fit. The broach was then removed. The hip was then copiously irrigated with antibiotic solution with a pulse lavage. Components were then opened and the femoral stem was then impacted into the proximal femur. The trunnion was cleaned and dried, and the femoral head and neck were then impacted. Hip was again gently reduced. Again leg lengths were checked and found to be equal, and the hip was taken through a full range of motion and found to be stable. The hip was again irrigated with pulsatile lavage, then followed by the Irrrisept solution. The abductors were then repaired through drill holes to the bone to the greater trochanter, utilizing #5 Ethibond suture. Next the fascia was repaired with #2 strata fix suture. The subcutaneous tissue was then repaired with 3-0 Vicryl. The subcuticular tissue was then repaired with 3-0 strata fix suture. Skin was then closed with Dermabond tape. A sterile dressing was then applied and the patient was transported to the recovery room in stable condition. Bisque Ware Dipper SERVANDO Valdez was required due to the complexity of surgery the need for skilled surgical scheduler. She assisted with positioning the patient, draping the patient, retraction during the surgery, and closure of the wound.
[2019-02-11] MEDS ORDERED: HYDROmorphone 1 MG/ML 1 ML SYRINGE IVP ONE (16:15)
[2019-02-11 16:41] LABS: Basophils # (A) 0.1 k/uL (0-0.2); Basophils % (A) 1 %; Eosinophils # (A) 0.2 k/uL (0-0.7); Eosinophils % (A) 2 %; HCT 32.1 % (34.0-46.0); HGB 10.2 gm/dL (11.4-16.0); Lymphocytes # (A) 1.3 k/uL (1.0-4.8); Lymphocytes % (A) 12 %; MCH 32.1 pg (25.0-35.0); MCHC 31.6 g/dL (31.0-37.0); MCV 101.7 fL (80.0-100.0); Macrocytosis Slight; Mean Platelet Volume 7.9; Monocytes # (A) 0.6 k/uL (0-1.0); Monocytes % (A) 5 %; Neutrophils # (A) 8.5 k/uL (1.3-7.7); Neutrophils % (A) 79 %; Platelet Count 125 k/uL (150-450); RBC 3.16 m/uL (3.80-5.40); RDW 13.1 % (11.5-15.5); WBC 10.8 k/uL (3.8-10.6)
[2019-02-11] MEDS: SODIUM CHLORIDE 0.9% 1,000 ML IV SCH (16:53)
--- NOTE | 2019-02-11 17:01 | XR ---
EXAMINATION TYPE: XR Hip Limited LT DATE OF EXAM: 02/11/2019 COMPARISON: 02/08/2019 HISTORY: Hip surgery TECHNIQUE: Single view FINDINGS: There is a left hip prosthesis. Components appear in anatomic position. IMPRESSION: No complicating process seen.
[2019-02-11] MEDS: ATORVASTATIN 20 MG TAB PO SCH (19:57)
[2019-02-11] MEDS ORDERED: SENNOSIDES-DOCUSATE SODIUM 1 EACH TAB PO SCH (21:00)
[2019-02-12] MEDS: HYDROmorphone 0.5 MG/0.5 ML SYRINGE IVP PRN ×3 (02:04→09:22)
[2019-02-12] MEDS: SODIUM CHLORIDE 0.9% 1,000 ML IV SCH (04:33)
[2019-02-12 05:14] VITALS: BP 104/63
[2019-02-12] MEDS ORDERED: RIVAROXABAN 10 MG TAB PO SCH (09:00)
[2019-02-12] MEDS: LISINOPRIL 5 MG TAB PO SCH (09:01)
[2019-02-12] MEDS: METOPROLOL TARTRATE 12.5 MG TAB PO SCH (09:01)
[2019-02-12] MEDS: FAMOTIDINE 20 MG TAB PO SCH (09:13)
[2019-02-12] MEDS: CYANOCOBALAMIN 500 MCG TAB PO SCH (09:13)
[2019-02-12] MEDS: CHOLECALCIFEROL 1,000 UNIT TAB PO SCH (09:13)
--- NOTE | 2019-02-12 11:20 | P.PN ---
Subjective Progress Note Date: 02/12/19 This patient is an 83-year-old female who has a past medical history of dementia and cardiovascular disease with prior stent placement that initially presented to [facility] emergency department on 02/08/19 after a mechanical fall. X-rays in the emergency department revealed a displaced left femoral neck fracture. Patient was admitted under the care of internal medicine with a consult placed to orthopedic surgery for surgical intervention and treatment. The patient was initially evaluated by Dr. Bunn, although the case was ultimately transferred to Dr. Bal Tsang. The patient underwent a left hip hemiarthroplasty on 02/11/19. Today is post-operative day #1. The patient has dementia and is unable to answer questions, and appears to be sleeping. Her daughter is bedside, and states this is roughly the patient's baseline, although the patient appears to be more tired than usual. Her daughter states the patient did not sleep last night. Physical therapy is also in the room at the time of my exam, and the patient was able to sit on the bedside, with assistance of physical therapy. There are no voiced complaints or concerns. Vital signs stable. Objective - Vital Signs Vital signs: Vital Signs Temp 99.0 F 02/12/19 09:28 Pulse 79 02/12/19 05:13 Resp 24 02/12/19 05:13 BP 104/63 02/12/19 05:13 Pulse Ox 90 L 02/12/19 09:28 Intake & Output 02/11/19 02/12/19 02/12/19 18:59 06:59 18:59 Intake Total 1601 10 Output Total 280 250 Balance 1321 -250 10 Intake: IV 1601 Oral 10 Output: Urine 180 250 Estimated Blood Loss 100 Other: Voiding Method Indwelling Catheter Indwelling Catheter Indwelling Catheter # Bowel Movements 0 0 - Exam On exam, the patient is sitting up in bed in no acute distress. She appears to be tired, she opens her eyes when asked. On inspection of the left hip, there is a dressing in place which is clean and dry, the outer corner of the dressing has been pulled away from the skin, revealing the surgical incision, which shows no signs of infection; there is no erythema or drainage. Abductor pillow in place, Horta catheter in place. Lower extremity compression cuffs in place bilaterally, calves are soft and nontender bilaterally. No pain with passive range of motion of the ankles. Neurovascular is intact of the left lower extremities bilaterally. Dorsalis pedis pulse +2 bilaterally, brisk capillary refill of lower extremities bilaterally. Vital signs stable. - Labs CBC & Chem 7: 02/11/19 16:03 02/11/19 09:09 Labs: Abnormal Lab Results - Last 24 Hours (Table) 02/11/19 Range/Units 16:03 WBC 10.8 H (3.8-10.6) k/uL RBC 3.16 L (3.80-5.40) m/uL Hgb 10.2 L (11.4-16.0) gm/dL Hct 32.1 L (34.0-46.0) % MCV 101.7 H (80.0-100.0) fL Plt Count 125 L (150-450) k/uL Neutrophils # 8.5 H (1.3-7.7) k/uL Microbiology - Last 24 Hours (Table) 02/10/19 06:19 Urine Culture - Final Urine,Catheterized Assessment and Plan Assessment: Left subcapital femoral neck fracture status-post left hip hemiarthroplasty on 02/11/19. Postoperative day #1. Plan: - Weight-bearing as tolerated of the left lower extremity. Up with assistance, up with a walker. Ice and elevate the left hip for pain and swelling control. - Abductor pillow is to be in place all times while in bed. - Physical therapy for gait and balance training. - Continue pain management. - Patient has been re-started on Xarelto for DVT prophylaxis. - 2 doses of postoperative antibiotics. - Case management consulted for discharge planning.
[2019-02-12] MEDS ORDERED: RX INFO: IV CONTRAST WAS GIVEN 1 EACH MISC MISCELLANE PRN (14:36)
[2019-02-12] MEDS ORDERED: SODIUM CHLORIDE 0.9% 500 ML 500 ML IV ONE (14:36)
[2019-02-12 14:51] VITALS: PULSE 84; RESP 18; TEMP 98.5
--- NOTE | 2019-02-12 14:59 | XR ---
EXAMINATION TYPE: XR chest 1V portable DATE OF EXAM: 02/12/2019 COMPARISON: 02/08/2019 HISTORY: Hypoxemia. Hip surgery. TECHNIQUE: Single view FINDINGS: There is coarse interstitial density in the lungs. There is no obvious heart failure. Thora cic aorta is atheromatous. There is no definite pleural fluid. Bony thorax is intact. There is arthri tic change in the right shoulder joint. IMPRESSION: Pulmonary fibrosis. No obvious heart failure. No change compared to last exam.
[2019-02-12 15:04] LABS: HGB 11.5 gm/dL (11.4-16.0); Hypochromasia Slight; MCH 33.1 pg (25.0-35.0); MCHC 31.9 g/dL (31.0-37.0); MCV 103.9 fL (80.0-100.0); Macrocytosis Slight; Mean Platelet Volume 9.6; RBC 3.47 m/uL (3.80-5.40); WBC 13.6 k/uL (3.8-10.6)
[2019-02-12 15:27] LABS: Platelet Count 85 k/uL (150-450)
[2019-02-12 15:59] LABS: Albumin 3.2 g/dL (3.5-5.0); Calcium 8.5 mg/dL (8.4-10.2); Total Bilirubin 2.3 mg/dL (0.2-1.3); Total Protein 6.1 g/dL (6.3-8.2)
--- NOTE | 2019-02-12 16:00 | CT ---
EXAMINATION TYPE: CT brain w con DATE OF EXAM: 02/12/2019 COMPARISON: 02/10/2019 HISTORY: Altered mental status CT DLP: 1070.4 mGycm Automated exposure control for dose reduction was used. CONTRAST: Performed with IV Contrast, patient injected with 100 mL of Isovue 300. There is diffuse cerebral cortical atrophy. There is no mass effect nor midline shift. There is no si gn of intracranial hemorrhage. There is enlargement of the ventricles. There is hypodensity in the pe riventricular white matter. The calvarium is intact. There is some debris in the external auditory ca nals. There is no pathologic enhancement. There is arterial flow in the anterior middle and posterior cereb ral arteries. IMPRESSION: Cerebral atrophy and chronic small vessel ischemia and hydrocephalus. No change compared to recent ex am. No acute intracranial abnormality.
[2019-02-12 16:24] LABS: Potassium 6.1 mmol/L (3.5-5.1)
--- NOTE | 2019-02-12 23:09 | PN ---
PROGRESS NOTE DATE OF SERVICE: 02/12/2019 This 83-year-old woman with a past medical history of multiple medical problems including history of CAD, history of dementia, history of DVT, DJD, history of adenoidectomy, appendectomy, being followed Dr. Murphy in the outpatient setting underwent left hip hemiarthroplasty fracture by Dr. Tsang. Initially apparently the patient was slated for surgery by Dr. Bunn but per family's request, the patient was transferred to Dr. sTang per Dr. Pineda's notes. Currently the patient is unresponsive. The patient is severely hypotensive. Blood pressure cannot be recorded. The patient is being made NO CODE by the family members. Patient being closely monitored at this time. I ordered repeat stat labs in this patient which showed evidence of acute renal failure with a creatinine of 2.10 and elevated LFT indicating some liver damage also. The patient being closely monitored at this time. PAST MEDICAL HISTORY: Reviewed. REVIEW OF SYMPTOMS: Review of systems could not be taken. CURRENT MEDICATIONS: 1. Rocephin 1 g IV daily. 2. Lipitor 20 mg. 3. Vitamin B12 500 mcg p.o. daily. 4. Pepcid 20 mg b.i.d. 5. Dilaudid 0.5 mg q.3 p.r.n. 6. Zestril 5 mg p.o. daily. 7. Lopressor. 8. Magnesium. 9. Zofran. 10.Xarelto. 11.Ultram. PHYSICAL EXAM: Patient is unresponsive. Pulse 73, blood pressure is not recordable. The respiration 18. Temperature is normal. Pulse ox 97% on 4 L. HEENT is conjunctivae pale. Oral mucosa moist. NECK is no jugular venous distention. No carotid bruit. No lymph node enlargement. CARDIOVASCULAR: S1, S2 muffled. RESPIRATION: Breath sounds diminished in the bases. A few scattered rhonchi and crackles. ABDOMEN: Soft. NERVOUS System: Could not be examined completely. LABS: WBC 13.6, sodium 146, potassium 6.1, creatinine is 2.10. ASSESSMENT: 1. Status post left hip hemiarthroplasty. 2. Postoperative hypotension most likely acute on chronic acute myocardial infarction. 3. Acute renal failure possibly secondary from prerenal acute tubular necrosis. 4. Severe dehydration. 5. Elevated LFTs, possibly acute hepatic damage from the hypotension. 6. Hyperkalemia secondary to renal failure. 7. Increased WBC. 8. History of coronary artery disease. 9. History of severe dementia. 10.History of deep vein thrombosis. 11.History of urinary tract infection. 12.History of arrhythmias. 13.Adenoidectomy. 14.History of coronary artery disease/stent. 15.NO CODE, NO CPR and NO VENT. RECOMMENDATIONS AND DISCUSSION: In this 83-year-old woman who presented with multiple complex medical issues, at this time, I recommend to continue the current medications, management and symptomatic treatment. I would recommend IV fluid boluses as mentioned earlier. The staff has discussed with the family and the patient is made NO CODE, NO CPR AND NO VENT at this time. Most likely, the patient has suffered an acute coronary event at this time resulting in severe hypotension and multiple other medical issues as mentioned earlier. Patient had advanced severe dementia as baseline as per my discussion with the caregiver at the bedside and we will continue to monitor. Prognosis extremely guarded because of multiple complex medical issues. Further recommendations to follow. TOMÁS / YOSHIN: [id number] / MTDCharity
--- NOTE | 2019-02-14 08:47 | DS ---
DISCHARGE SUMMARY PRELIMINARY CAUSE OF : Possible coronary atherosclerosis and acute myocardial infarction. OTHER DIAGNOSES ARE: 1. Status post left hip hemiarthroplasty. 2. Postoperative hypotension, most likely due to acute myocardial infarction/. 3. Acute renal failure, possibly secondary to prerenal acute tubular necrosis. 4. Severe dehydration. 5. Elevated LFTs, possibly acute hepatitis and hepatic damage from hypotension. 6. Hyperkalemia secondary to renal failure. 7. Increased WBC. 8. History of coronary artery disease. 9. History of severe dementia. 10.History of deep venous thrombosis. 11.History of urinary tract infection. 12.History of arrhythmia. 13.History of adenoidectomy. 14.History of coronary artery disease, stent. 15.NO CODE, NO CPR, NO VENT. HISTORY OF PRESENT ILLNESS: This 83-year-old woman with a past medical history of multiple medical problems including severe dementia was admitted with a fracture and the patient underwent left hip hemiarthroplasty after consultation with the family. Postoperatively, the patient developed sudden hypotension and unresponsiveness and the patient was found to be severely dehydrated and the patient was monitored closely. Patient also had other lab abnormalities as listed above with renal failure and elevated LFTs also possibly indicating secondary renal failure and hepatic damage secondary to hypotension. The patient was given IV bolus fluid, but the patient did not respond and the patient is NO CODE and subsequently succumbed to the above mentioned illness. As mentioned earlier, the patient had severe dementia and please refer to the staff notes and surgical notes and other notes for further details. MMODL / IJN: [id number] /
--- NOTE | 2019-02-25 15:06 | CDI ---
Documentation Clarification Form Date: 02/25/2019 02:25:07 PM From: Seble Bocanegra RN, CCDS Email: [email or web address] Admit Date: 02/08/2019 10:00:00 PM Patient Name: Delmy Yoon Visit Number: [id number] Discharge Date: 02/12/2019 05:00:00 PM ATTENTION: The Clinical Documentation Specialists (CDI) and [facility] Coding Staff appreciate your assistance in clarifying documentation. Please respond to the clarification below the line at the bottom and electronically sign. The CDI & [facility] Coding staff will review the response and follow-up if needed. Please note: Queries are made part of the Legal Health Record. If you have any questions, please contact the author of this message via ITS. Dr. Felipa Arias The patient noted to have the following respiratory symptoms: slightly hypoxic, dyspneic and breathing difficulties is documented in the progress notes dated 02/10 and 02/11. History/Risk Factors: Dementia, CAD, S/P left hip hemiarthroplasty on 02/11 for sub-capital fracture of the left hip. Clinical Indicators: hypoxic, dyspnea, breathing difficulty, became unresponsive and severely hypotensive on 02/11. Vital signs: 02/11@16:26 BP 80/40, HR 80, RR 24, temp 100.4 Pulse oximetry: 02/08>90 room air, 02/09>90 on 6L ventimask, 02/10>95 on 2LNC, 02/11>96 on 5LNC Lung/Breathing assessment: rales, rhonchi documented 02/09 to 02/11. Diminished on 02/12 Treatment: Lasix 40 mg IVx1 on 02/10, Incentive spirometry ordered O2: 2LNC to 6L via venti-mask In your professional opinion, can you please clarify if these findings signify one of the following conditions? Acute Respiratory Failure Acute on Chronic Respiratory Failure Chronic Respiratory Failure Other Diagnosis, please specify Unable to determine Specificity: If known, further specify (if known): With hypercapnia? (pCO2 >50 and pH <7.35) With hypoxia? (pO2 <60 mm Hg or SpO2 <91% on room air) Acute Respiratory Failure With hypoxia MTDD
== END 2019-02-12 17:00 | disposition expired | DRG 469 ==
LOC: EC 18:57 → 4SSUR 22:00 → 6NMEDSUR 02-09 04:51
PROVIDERS: ADMIT Hospitalist; ATTEND Hospitalist
PROC: 0SRS0JA Replacement of Left Hip Joint, Femoral Surface with Synthetic Substitute, Uncemented, Open Approach (ICD-10-PCS; principal; 2019-02-08)
DX: S72.012A Unspecified intracapsular fracture of left femur, initial encounter for closed fracture (principal); I21.9 Acute myocardial infarction, unspecified; N17.0 Acute kidney failure with tubular necrosis; K72.00 Acute and subacute hepatic failure without coma; G93.41 Metabolic encephalopathy; R40.2344 Coma scale, best motor response, flexion withdrawal, 24 hours or more after hospital admission; R40.2214 Coma scale, best verbal response, none, 24 hours or more after hospital admission; J96.01 Acute respiratory failure with hypoxia; N39.0 Urinary tract infection, site not specified; R40.2134 Coma scale, eyes open, to sound, 24 hours or more after hospital admission; E86.0 Dehydration; I25.10 Atherosclerotic heart disease of native coronary artery without angina pectoris; M19.90 Unspecified osteoarthritis, unspecified site; S09.90XA Unspecified injury of head, initial encounter; I95.9 Hypotension, unspecified; Z66 Do not resuscitate; Z96.653 Presence of artificial knee joint, bilateral; F03.90 Unspecified dementia, unspecified severity, without behavioral disturbance, psychotic disturbance, mood disturbance, and anxiety; E87.5 Hyperkalemia; W01.0XXA Fall on same level from slipping, tripping and stumbling without subsequent striking against object, initial encounter; Y92.099 Unspecified place in other non-institutional residence as the place of occurrence of the external cause; Z86.718 Personal history of other venous thrombosis and embolism; Z87.440 Personal history of urinary (tract) infections; Z82.49 Family history of ischemic heart disease and other diseases of the circulatory system; Z90.49 Acquired absence of other specified parts of digestive tract; Z90.89 Acquired absence of other organs; Z95.5 Presence of coronary angioplasty implant and graft; Z90.710 Acquired absence of both cervix and uterus; Z80.9 Family history of malignant neoplasm, unspecified
CPT/HCPCS: 36415; 70450; 70460; 71045; 72125; 73501; 73502; 80048; 80053; 81001; 83735; 85025; 85027; 86850; 86900; 86901; 87086; 88305; 88311; 93005; 96372; 96374; 96375; 99285